=== PATIENT | female | born 1985 | race Native Hawaiian/Other Pacific Islander ===

== ENCOUNTER 2017-08-20 08:57 | Inpatient (IN) | payer OTHER ==
[2017-08-20 09:48] VITALS: RESP 18; O2SAT 100
--- NOTE | 2017-08-20 10:08 | ED PDOC ---
HPI: Psych/Substance Abuse Time Seen by Provider: 08/20/17 10:03 Chief Complaint (Nursing): Psychiatric Evaluation Chief Complaint (Provider): PSYCH EVAL History Per: Patient (31 Y/O FEMALE HERE WITH FOR ONGOING DEPRESSION 1.5 MONTHS. PATIENT HAS EXPRESSED SUICIDAL IDEATION AND HAS PLAN TO JUMP OFF BUILDING. STATES PATIENT HAS MALE FRIEND OF 15 YEARS WITH WHOM SHE SENT NUDE PICTURES IN ANGER AND BECAME WORRIED THAT HE WOULD SHOW OTHERS/POST THEM. SINCE THIS TIME, HAS BEEN PARANOID THAT HER FAMILY KNOWS AND FEELS HER IS UPSET WITH HER. HAS CUT SELF IN PAST SUICIDAL GESTURE BUT STATES IT WAS NOT SERIOUS ATTEMPT. ), Family Past Medical History Reviewed: Historical Data, Nursing Documentation, Vital Signs Vital Signs: Last Vital Signs Temp 97 F L 08/20/17 09:43 Pulse 77 08/20/17 09:43 Resp 18 08/20/17 09:43 BP 117/80 08/20/17 09:43 Pulse Ox 100 08/20/17 09:43 - Medical History PMH: Hyperthyroidism Denies: Chronic Kidney Disease - Family History Family History: States: No Known Family Hx - Immunization History Hx Tetanus Toxoid Vaccination: No Hx Influenza Vaccination: No Hx Pneumococcal Vaccination: No - Home Medications Home Medications: Ambulatory Orders Medication Instructions Recorded Levothyroxine [Synthroid] 50 mcg PO DAILY 08/20/17 - Allergies Allergies/Adverse Reactions: Allergies Allergy/AdvReac Type Severity Reaction Status Date / Time No Known Allergies Allergy Verified 08/20/17 09:43 Review of Systems ROS Statement: Except As Marked, All Systems Reviewed And Found Negative Physical Exam - Reviewed Nursing Documentation Reviewed: Yes Vital Signs Reviewed: Yes - Physical Exam Appears: Positive for: Well, Non-toxic, No Acute Distress Head Exam: Positive for: ATRAUMATIC, NORMAL INSPECTION, NORMOCEPHALIC Skin: Positive for: Normal Color, Warm, DRY Eye Exam: Positive for: EOMI, Normal appearance, PERRL ENT: Positive for: Normal ENT Inspection Neck: Positive for: Normal, Painless ROM Cardiovascular/Chest: Positive for: Regular Rate, Rhythm Respiratory: Positive for: CNT, Normal Breath Sounds Gastrointestinal/Abdominal: Positive for: Normal Exam, Bowel Sounds, Soft Back: Positive for: Normal Inspection Extremity: Positive for: Normal ROM Neurologic/Psych: Positive for: Alert, Oriented - Laboratory Results Result Diagrams: 08/20/17 10:43 08/20/17 10:43 - ECG O2 Sat by Pulse Oximetry: 100 - Progress ED Course And Treament: SEEN BY CRISIS ADMITTED TO DR. SLATER FOR DIAGNOSIS OF DEPRESSION Disposition - Clinical Impression Clinical Impression: Depression - Patient ED Disposition Is Patient to be Admitted: Yes - Disposition Disposition Time: 14:59 Condition: FAIR - Pt Status Changed To: Hospital Disposition Of: Inpatient - Admit Certification Admit to Inpatient:: After my assessment, the patient will require hospitalization for at least two midnights. This is because of the severity of symptoms shown, intensity of services needed, and/or the medical risk in this patient being treated as an outpatient.
[2017-08-20 10:57] LABS: BASO % 0.5 % (0.0-2.0); EOS # 0.2 K/uL (0.0-0.7); EOS % 2.7 % (0.0-4.0); HEMOGLOBIN 12.9 g/dL (12.0-16.0); LYMPH # 1.9 K/uL (1.0-4.3); LYMPH % 31.7 % (20.0-40.0); MEAN CORPUSCULAR HEMOGLOBIN 29.1 pg (27.0-31.0); MEAN CORPUSCULAR HGB CONC 33.9 g/dL (33.0-37.0); MEAN PLATELET VOLUME 7.6 fl (7.2-11.7); MONO # 0.5 K/uL (0.0-0.8); MONO % 8.6 % (0.0-10.0); NEUT # 3.4 K/uL (1.8-7.0); NEUT % 56.5 % (50.0-75.0); NRBC % 0.2 % (0.0-0.0); RBC 4.41 Mil/uL (3.80-5.20); RED CELL DISTRIBUTION WIDTH 15.9 % (11.5-14.5)
[2017-08-20 11:24] LABS: ALB/GLOB RATIO 1.2 (1.0-2.1); ALT/SGPT 46 U/L (9-52); AST/SGOT 33 U/L (14-36); BLOOD UREA NITROGEN 9 mg/dl (7-17); CALCIUM 9.3 mg/dL (8.4-10.2); GFR AFRICAN-AMERICAN > 60; GFR NON-AFRICAN AMERICAN > 60
[2017-08-20 11:39] LABS: SQUAMOUS EPITHIAL 10 /hpf (0-5); URINE BACTERIA RARE (<OCC); URINE BILIRUBIN NEGATIVE (NEGATIVE); URINE BLOOD NEGATIVE (NEGATIVE); URINE CLARITY CLOUDY (Clear); URINE COLOR YELLOW (YELLOW); URINE GLUCOSE (UA) NEG (Normal); URINE LEUKOCYTE ESTERASE NEG Leu/uL (Negative); URINE NITRATE NEGATIVE (NEGATIVE); URINE PROTEIN NEGATIVE (NEGATIVE); URINE UROBILINOGEN 0.2-1.0 mg/dL (0.2-1.0)
[2017-08-20 11:46] LABS: BARBITURATES, UR NEGATIVE (NEGATIVE); BENZODIAZEPINES, UR NEGATIVE (NEGATIVE); OPIATES, UR NEGATIVE (NEGATIVE); PHENCYCLIDINE, UR NEGATIVE (NEGATIVE)
[2017-08-20] MEDS ORDERED: Alum-Mag Hydrox-Simethicone Susp (30 mL) PO PRN (19:58)
[2017-08-20] MEDS ORDERED: DiphenhydrAMINE 50 mg/ml Inj IM PRN (19:58)
[2017-08-20] MEDS ORDERED: Magnesium Hydroxide Susp 30 ml UD PO PRN (19:58)
--- NOTE | 2017-08-20 20:25 | PCM.BM ---
<Lopez Head - Last Filed: 08/20/17 20:24> Treatment Plan Problems - Problems identified on initial assessmt Hopelessness/Helplessness Date Initiated: 08/20/17 Time Initiated: 20:24 Assessment reference: NA Status: Active Priority: 1 Feelings of Worthlessness Date Initiated: 08/20/17 Time Initiated: 20:24 Assessment reference: NA Status: Active Priority: 2 Treatment assets and liabiliti Patient Assests: cooperative, ADL independent, negotiates basic needs, cognitively intact Patient Liabilities: relationship conflicts, language/speech - Milieu Protocol Maintain good personal hygiene: every shift Encourage regular showers, every shift Remind patient to perform daily oral care, every shift Assist patient to perform ADL's Maintain personal safety: daily Educate patient to report safety concerns to staff, daily Monitor environment for contraband/sharps Medication safety: Monitor for expected outcome, potential side effects: daily, Assess barriers to learning: daily, Assess readiness for medication education: daily <Amanda Rivera - Last Filed: 08/21/17 10:58> - Diagnosis (1) Major depressive disorder Status: Acute Interventions: Medication management, Psychoeducation, Individual and group therapy 08/21/17 10:58 <Karina Rosales - Last Filed: 08/21/17 13:00> Family Contact Family contact: Patient agrees to contact, Family has been contacted by patient , Telephone contact initiated by staff, Family meeting planned to review treatment plan Family contact name: Richard - Family contacted how many times per week?: 2 Family contact comment: [phone] Discharge/Continuing Care - Education Needs Education Needs: Family Medication, Family Diagnosis/Disease Process, Family Coping Skills, Family Community resources, Family Nutrition, Family Personal Hygiene/Grooming, Family Aftercare Safety Plan, Patient Medication, Patient Diagnosis/Disease Process, Patient Coping Skills, Patient Community resources, Patient Nutrition, Patient Personal Hygiene/Grooming, Patient Aftercare Safety Plan - Discharge Discharge Criteria: Tolerates medication w/o severe side effects, Free of Suicidal thoughts, Normal sleep pattern, Ability to care for self, Reduction of target symptoms Discharge to:: Home, With Family - Additional Comments 08/21/17 13:00 Interdisciplinary team met with pt in the activity room; translation services provided by a certified employee, Anne Werner RN. Reason for admission reviewed and discussed. Pt reported she was referred to the Ed because hard time sleeping and irritable. Pt reported symptoms started about 15 days ago. Pt reported feeling increasingly anxious and fearful after texting an old college friend who then asked her for a nude picture of her. Pt reported that initially she declined and that friend stopped texting her. Pt reported thats he later sent him the nude picture and he requested for a video. Pt reported feeling increasingly anxious and fearful because she fears that the friend is going to post the picture on social media. Pt reported that she has been avoiding talking on the cellphone and even watching TV because she fears that she is going to see her picture on the internet. Pt reported that she disclosed this to her and now she fears that he will leave her. Pt also reported that she relocated to the [place] on [place]27[place]2017 due to her job and has no friends and no family near her. Pt reported that language barrier is difficult for her and she feels sad. Pt reported that she has had thoughts of suicide in the past, but never attempted nor carried out her plan. Pts social and medical issues discussed and reviewed. Pts medications reviewed and discussed. Tx plan reviewed and discussed; pt is agreeable. Team also met with pts , Richard and collateral information obtained. Per , he referred pt to the ED because she was not sleeping for 15 days and is increasingly anxious and fearful. Pts reported he is aware of pt sending her male college friend a nude picture and fears that he is going to leave her for that. Pts explained that he does not plan nor has thought about leaving pt. Pts reported that pt has been anxious bc she fears that her picture will be on the internet and family in [place] will see it. Medications reviewed and discussed with . Pt and pts requesting that pt be discharged and return back home. Pts reported that he is not concerned with pts safety and is comfortable with pt returning home. reported that he has finished a work project and will have more time to dedicate to pt. Pt and pts agreeable with pt following up with an outpatient psychiatrist post discharge. Contracts Paralegal explained to pts that once his insurance is verified that a list of in-network providers will be obtained and appointment will be secured. Contracts Paralegal inquired about consent to contact doctor post discharge and then contacting pt and pts with appointment via telephone and mail. Pt verbalized understanding and agreement, per employment specialist. Pts who is Iranian speaking can be reached at ). - Treatment Team Participation Discussed with Family/SO: Yes Was Patient/Family/SO present at Treatment Team Meeting: Yes
[2017-08-21 06:04] VITALS: BP 93/67; PULSE 77; TEMP 97.8
--- NOTE | 2017-08-21 07:05 | CP.PCM.CON ---
History of Present Illness - History of Present Illness History of Present Illness: Attending: Dr Golden Reason for consult: Management of Hypothyroidism and medical management Chief complaint: Depression HPI: The hx is obtained from the patient and the medical record. This is a 31 years old female who speaks little Montenegrin ans has hx of Hypothyroidism. She was brought to he ED by her because of a Month and Half Hx of Depression and Suicidal Ideation. She has been expressing Anxiety, anger and Paranoid thoughts of nude photos of herself being shown to family and friends. She has gone to the roof of her apartment twice with idea of jumping. No headaches, fever, cough, nausea nor vomits. No urinary symptoms nor diarrhea. PMH: Hypothyroidism PSH: Denies SH: No illegal drug use; Never Smoked; Alcohlo socially; Live with family FH: States: no known family hx Allergies: NKDA Medication: reviewed Review of Systems - Constitutional Constitutional: absent: Chills, Fatigue, Fever, Headache - EENT Eyes: absent: Diplopia, Floaters, Photophobia, Requires Corrective Lenses, Sees Flashes Ears: absent: Decreased Hearing, Ear Discharge, Ear Pain, Tinnitus Nose/Mouth/Throat: absent: Epistaxis, Nasal Congestion, Sinus Pain, Sinus Pressure - Cardiovascular Cardiovascular: absent: Chest Pain, Chest Pain at Rest, Dyspnea, Edema - Respiratory Respiratory: absent: Cough, Dyspnea, Wheezing, Stridor - Gastrointestinal Gastrointestinal: absent: Abdominal Pain, Constipation, Diarrhea, Nausea, Vomiting - Genitourinary Genitourinary: absent: Dysuria, Flank Pain, Hematuria, Urinary Frequency - Musculoskeletal Musculoskeletal: absent: Arthralgias, Deformity, Joint Swelling, Myalgias - Integumentary Integumentary: absent: Pruritus, Rash, Skin Ulcer, Sores, Striae, Swelling - Neurological Neurological: absent: Confusion, Dizziness, Focal Weakness, Weakness - Psychiatric Psychiatric: Anxiety, Depression, Paranoia - Endocrine Endocrine: absent: Palpitations, Polydipsia, Polyphagia, Polyuria - Hematologic/Lymphatic Hematologic: absent: Easy Bleeding, Easy Bruising Past Patient History - Past Medical History & Family History Past Medical History?: Yes - Past Social History Smoking Status: Never Smoked Chewing Tobacco Use: No Cigar Use: No Alcohol: Occasional Drugs: Denies Home Situation {Lives}: With Family - CARDIAC Hx Cardiac Disorders: No Hx Hypertension: No - PULMONARY Hx Respiratory Disorders: No Hx Tuberculosis: No - NEUROLOGICAL HX Cerebrovascular Accident: No Hx Seizures: No - HEENT Hx HEENT Problems: No - RENAL Hx Chronic Kidney Disease: No - ENDOCRINE/METABOLIC Hx Hypothyroidism: Yes - HEMATOLOGICAL/ONCOLOGICAL Hx Cancer: No Hx Human Immunodeficiency Virus (HIV): No - INTEGUMENTARY Hx Dermatological Problems: No - MUSCULOSKELETAL/RHEUMATOLOGICAL Hx Musculoskeletal Disorders: No - GASTROINTESTINAL Hx Gastrointestinal Disorders: No - GENITOURINARY/GYNECOLOGICAL Hx Genitourinary Disorders: No Hx Sexually Transmitted Disorders: No - PSYCHIATRIC Hx Anxiety: Yes Hx Depression: Yes Hx Substance Use: No - SURGICAL HISTORY Hx Surgeries: No - ANESTHESIA Hx Anesthesia: No Meds Allergies/Adverse Reactions: Allergies Allergy/AdvReac Type Severity Reaction Status Date / Time No Known Allergies Allergy Verified 08/20/17 09:43 - Medications Medications: Current Medications Acetaminophen (Tylenol 325mg Tab) 650 mg PO Q4 PRN PRN Reason: Pain, moderate (4-7) Al Hydrox/Mg Hydrox/Simethicone (Maalox Plus 30 Ml) 30 ml PO Q4 PRN PRN Reason: Dyspepsia Diphenhydramine HCl (Benadryl) 50 mg IM Q6 PRN PRN Reason: Extrapyramidal S/S Unable PO Diphenhydramine HCl (Benadryl) 50 mg PO Q6 PRN PRN Reason: Extrapyramidal Symptoms Diphenhydramine HCl (Benadryl) 50 mg PO HS PRN PRN Reason: Sleep Last Admin: 08/20/17 23:15 Dose: 50 mg Haloperidol (Haldol) 5 mg PO Q4 PRN PRN Reason: Agitation Haloperidol Lactate (Haldol) 5 mg IM Q4 PRN PRN Reason: Agitation, Unable to Take PO Levothyroxine Sodium (Synthroid) 50 mcg PO DAILY KIESHA Lorazepam (Ativan) 2 mg IM Q4 PRN PRN Reason: Anxiety/Agitation,Unable PO Lorazepam (Ativan) 2 mg PO Q4 PRN PRN Reason: Anxiety/Agitation Last Admin: 08/21/17 02:30 Dose: 2 mg Magnesium Hydroxide (Milk Of Magnesia) 30 ml PO HS PRN PRN Reason: Constipation Physical Exam - Constitutional Appears: No Acute Distress - Head Exam Head Exam: ATRAUMATIC, NORMAL INSPECTION, NORMOCEPHALIC - Eye Exam Eye Exam: EOMI, Normal appearance Pupil Exam: NORMAL ACCOMODATION, PERRL - ENT Exam ENT Exam: Mucous Membranes Moist, Normal Exam, Normal External Ear Exam - Neck Exam Neck exam: Positive for: Full Rom, Normal Inspection. Negative for: Lymphadenopathy, Tenderness - Respiratory Exam Respiratory Exam: Clear to Auscultation Bilateral. absent: Rales, Rhonchi, Wheezes, Stridor - Cardiovascular Exam Cardiovascular Exam: REGULAR RHYTHM, RRR, +S1, +S2. absent: Gallop, JVD - GI/Abdominal Exam GI & Abdominal Exam: Normal Bowel Sounds, Soft. absent: Mass, Organomegaly, Tenderness - Rectal Exam Rectal Exam: Deferred - Extremities Exam Extremities exam: Positive for: normal inspection. Negative for: calf tenderness, joint swelling, pedal edema - Back Exam Back exam: NORMAL INSPECTION. absent: CVA tenderness (L), CVA tenderness (R) - Neurological Exam Neurological exam: Alert, CN II-XII Intact, Oriented x3, Reflexes Normal - Psychiatric Exam Psychiatric exam: Normal Affect, Normal Mood - Skin Skin Exam: Dry, Intact, Normal Color, Warm Results - Vital Signs Recent Vital Signs: Last Vital Signs Temp 97.8 F 08/21/17 06:00 Pulse 77 08/21/17 06:00 Resp 18 08/21/17 06:00 BP 93/67 L 08/21/17 06:00 Pulse Ox 100 08/20/17 16:07 - Labs Result Diagrams: 08/20/17 10:43 08/20/17 10:43 Labs: Laboratory Results - last 24 hr 08/20/17 08/20/17 08/20/17 10:43 10:43 11:05 WBC 6.0 RBC 4.41 Hgb 12.9 Hct 37.9 MCV 86.0 MCH 29.1 MCHC 33.9 RDW 15.9 H Plt Count 245 MPV 7.6 Neut % (Auto) 56.5 Lymph % (Auto) 31.7 Hill % (Auto) 8.6 Eos % (Auto) 2.7 Baso % (Auto) 0.5 Neut # (Auto) 3.4 Lymph # (Auto) 1.9 Hill # (Auto) 0.5 Eos # (Auto) 0.2 Baso # (Auto) 0.0 Sodium 142 Potassium 4.7 Chloride 104 Carbon Dioxide 29 Anion Gap 14 BUN 9 Creatinine 0.8 Est GFR ( Amer) > 60 Est GFR (Non-Af Amer) > 60 Random Glucose 98 Calcium 9.3 Total Bilirubin 0.5 AST 33 ALT 46 Alkaline Phosphatase 59 Total Protein 7.5 Albumin 4.0 Globulin 3.5 Albumin/Globulin Ratio 1.2 TSH 3rd Generation 1.77 Urine Color Urine Clarity Urine pH Ur Specific [place] Urine Protein Urine Glucose (UA) Urine Ketones Urine Blood Urine Nitrate Urine Bilirubin Urine Urobilinogen Ur Leukocyte Esterase Urine RBC (Auto) Urine Microscopic WBC Ur Squamous Epith Cells Urine Bacteria Urine Opiates Screen Negative Urine Methadone Screen Negative Ur Barbiturates Screen Negative Ur Phencyclidine Scrn Negative Ur Amphetamines Screen Negative U Benzodiazepines Scrn Negative U Oth Cocaine Metabols Negative U Cannabinoids Screen Negative Alcohol, Quantitative < 10 08/20/17 11:05 WBC RBC Hgb Hct MCV MCH MCHC RDW Plt Count MPV Neut % (Auto) Lymph % (Auto) Hill % (Auto) Eos % (Auto) Baso % (Auto) Neut # (Auto) Lymph # (Auto) Hill # (Auto) Eos # (Auto) Baso # (Auto) Sodium Potassium Chloride Carbon Dioxide Anion Gap BUN Creatinine Est GFR ( Amer) Est GFR (Non-Af Amer) Random Glucose Calcium Total Bilirubin AST ALT Alkaline Phosphatase Total Protein Albumin Globulin Albumin/Globulin Ratio TSH 3rd Generation Urine Color Yellow Urine Clarity Cloudy Urine pH 6.0 Ur Specific [place] 1.009 Urine Protein Negative Urine Glucose (UA) Neg Urine Ketones Negative Urine Blood Negative Urine Nitrate Negative Urine Bilirubin Negative Urine Urobilinogen 0.2-1.0 Ur Leukocyte Esterase Neg Urine RBC (Auto) 7 H Urine Microscopic WBC 2 Ur Squamous Epith Cells 10 H Urine Bacteria Rare Urine Opiates Screen Urine Methadone Screen Ur Barbiturates Screen Ur Phencyclidine Scrn Ur Amphetamines Screen U Benzodiazepines Scrn U Oth Cocaine Metabols U Cannabinoids Screen Alcohol, Quantitative Assessment & Plan - Assessment and Plan (Free Text) Assessment: #. Depressive/Anxiety Disorder #. Hypothyroidism Plan: 31 years old female who speaks little Montenegrin and has hx of Hypothyroidism, brought to he ED by her because of a Month and Half Hx of Depression and Suicidal Ideation. #. Depressive/Anxiety Disorder with Suicide Ideation - Psychiatric management #. Hypothyroidism - Synthroid - TSH - Free T4 #. DVT Prophylaxis: Ambulatory #. Code Status: Full - Date & Time Date: 08/21/17 Time: 07:05
[2017-08-21 07:58] LABS: T4 8.88 ug/dl (5.5-11.0)
[2017-08-21 08:21] LABS: HDL CHOLESTEROL 38 MG/DL (30-70)
[2017-08-21 08:32] LABS: LDL CHOLESTEROL 105 mg/dL (0-129)
[2017-08-21] MEDS ORDERED: Levothyroxine 50 MCG TAB PO SCH (09:00)
--- NOTE | 2017-08-21 09:59 | PCM.PSYCH ---
Initial Psychiatric Evaluation - Initial Psychiatric Evaluation Type of Admission: Voluntary Legal Status: Capacity Chief Complaint (in patient's own words): "I've been lonely and depressed." Patient's Reaction to Hospitalization: HPI: 31 yo female w/ no significant past psychiatric history, presents w/ depressed mood and anxiety in the context of recently moving from [place] and lack of family and friends in the country. Patient reports that she has has vague suicidal ideation w/o plan or intent in the past, but denies current active suicidal ideation/plan/intent. She does report feeling lonely and depressed, but she feels hopeful for the future and would like to leave the hospital to care for her child. She denies AH/VH/paranoia. She reports feeling anxious that a male friend of hers will spread nude photos of her that she sent him. Patient reports difficult sleeping at night. Patient denies domestic violence. As per patient's , he has noticed that she has been depressed due to feeling lonely and isolated in the [place]. He does not believe she is an acute danger to herself or others. He will be home with her and he wants her to return home today. PMHx: Hypothyoidism ALL: NKDA FHx: Sister from a brain tumor; father w/ h/o depression following of the patient's sister SHx: From [place], unemployed, 1 child, lives w/ ; no drugs/etoh/cig Current Medications: Active Medications Generic Name Dose Route Start Last Admin Trade Name Freq PRN Reason Stop Dose Admin Acetaminophen 650 mg 08/20/17 19:58 Tylenol 325mg Tab PO Q4 PRN Pain, moderate (4-7) Al Hydrox/Mg Hydrox/Simethicone 30 ml 08/20/17 19:58 Maalox Plus 30 Ml PO Q4 PRN Dyspepsia Diphenhydramine HCl 50 mg 08/20/17 19:58 Benadryl IM Q6 PRN Extrapyramidal S/S Unable PO Diphenhydramine HCl 50 mg 08/20/17 19:58 Benadryl PO Q6 PRN Extrapyramidal Symptoms Diphenhydramine HCl 50 mg 08/20/17 20:05 08/20/17 23:15 Benadryl PO 50 mg HS PRN Administration Sleep Haloperidol 5 mg 08/20/17 19:58 Haldol PO Q4 PRN Agitation Haloperidol Lactate 5 mg 08/20/17 19:58 Haldol IM Q4 PRN Agitation, Unable to Take PO Levothyroxine Sodium 50 mcg 08/21/17 09:00 08/21/17 08:41 Synthroid PO 50 mcg DAILY KIESHA Administration Lorazepam 2 mg 08/20/17 19:58 Ativan IM Q4 PRN Anxiety/Agitation,Unable PO Lorazepam 2 mg 08/20/17 19:58 08/21/17 02:30 Ativan PO 2 mg Q4 PRN Administration Anxiety/Agitation Magnesium Hydroxide 30 ml 08/20/17 19:58 Milk Of Magnesia PO HS PRN Constipation Past Psychiatric History - Past Psychiatric History Previous Treatment History: None Pertinent Medical Hx (Current Medical&Sleep Prob, Allergies): Allergies Allergy/AdvReac Type Severity Reaction Status Date / Time No Known Allergies Allergy Verified 08/20/17 09:43 Levothyroxine [Synthroid] 50 mcg PO DAILY 08/20/17 Review of Systems - Psychiatric Psychiatric: Abnormal Sleep Pattern, Anxiety, Depression, Difficulty Concentrating, Suicidal Ideation Mental Status Examination - Personal Presentation Personal Presentation: Looks stated age - Affect Affect: Broad - Motor Activity Motor Activity: Calm - Reliability in Providing Information Reliability in Providing Information: Good - Speech Speech: Organized - Mood Mood: Depressed, Anxious - Formal Thought Process Formal Thought Process: No Impairment - Hallucinations/Delusions Additional comments: NO AH/VH/paranoia/delusions - Obsessions/Compulsions Obsessions: No Compulsions: No - Cognitive Functions Orientation: Person, Place, Situation, Time Sensorium: Alert Attention/Concentration: Attentive Estimate of Intelligence: Average Judgement: Intact, as evidence by: Good judgement Memory: Recent intact, as evidence by: Ability to recall events of the day, Recent intact, as evidence by: 3/3 object recall, Remote intact, as evidenced by : Abilit to recall sig. life events, Remote intact, as evidenced by: Ability to recall historical events - Risk Risk: Suicidal - Strength & Assets Inventory Strength & Assets Inventory: Intelligence, Family support, Education, Skills, Life experience, Cooperative DSM 5 DX - DSM 5 DSM 5 Diagnosis: Major Depressive Disorder - Recommended/Plan of Treatment Treatment Recommendations and Plan of Treatment: Major Depressive Disorder; patient is requesting to be discharged. She is not an acute danger to self or others, confirmed by patient's , so she will be discharged to home today. -Start Zoloft 50 mg PO Daily -Individual and group therapy -Discharge patient w/ outpatient followup Projected ELOS: 1 Discharge Plan and Discharge Criteria: Patient is psychiatrically stable for discharge at this time - Smoking Cessation Smoking Cessation Initiated: No Reason for not providing: Not indicated
--- NOTE | 2017-08-21 12:11 | PCM.PYCHDC ---
Mental Status Examination - Mental Status Examination Orientation: Person, Place, Situation, Time Memory: Intact Mood: Depressed, Anxious Affect: Broad Speech: Appropriate Attention: WNL Concentration: WNL Association: WNL Fund of Knowledge: WNL Formal Thought Process: No Impairment Description of patient's judgement and insight: Good I/J Psychotic Thoughts and Behaviors: NO AH/VH/paranoia/delusions Suicidal Ideation: No Current Homicidal Ideation?: No Discharge Summary - Discharge Note Reason for Hospitalization: HPI: 31 yo female w/ no significant past psychiatric history, presents w/ depressed mood and anxiety in the context of recently moving from [place] and lack of family and friends [place] the country. Patient reports that she has has vague suicidal ideation w/o plan or intent in the past, but denies current active suicidal ideation/plan/intent. She does report feeling lonely and depressed, but she feels hopeful for the future and would like to leave the hospital to care for her child. She denies AH/VH/paranoia. She reports feeling anxious that a male friend of hers will spread nude photos of her that she sent him. Patient reports difficult sleeping at night. Patient denies domestic violence. As per patient's , he has noticed that she has been depressed due to feeling lonely and isolated in the [place]. He does not believe she is an acute danger to herself or others. He will be home with her and he wants her to return home today. PMHx: Hypothyoidism ALL: NKDA FHx: Sister from a brain tumor; father w/ h/o depression following of the patient's sister SHx: From [place], unemployed, 1 child, lives w/ ; no drugs/etoh/cig Laboratory Data: Abnormal Lab Results 08/21/17 08/21/17 06:55 07:00 Triglycerides 107 Cholesterol 167 LDL Cholesterol Direct 105 HDL Cholesterol 38 Thyroxine (T4) 8.88 TSH 3rd Generation 2.86 Consultations:: List each consultation separately and include: 1. Reason for request. 2. Findings. 3. Follow-up Consultations: Medicine consult Summary of Hospital Course include:: 1. Description of specific treatment plan utilized for patients during their course of treatmen. 2. Summarize the time- course for resolution of acute symptoms and/or regressed behaviors. 3. Describe issues identified and worked on during hospitalization. 4. Describe medication utilized. 5. Describe medical problems identified and treated. 6. Reassessment of suicide risk Summary of Hospital Course: Patient was admitted to the hospital. She was started on Zoloft and will be discharged as she is requesting to be discharged and she is not an acute danger to herself or others. - Diagnosis (1) Major depressive disorder Current Visit: Yes Status: Acute - Final Diagnosis (DSM 5) Condition upon Discharge: STABLE DSM 5: Major Depressive Disorder Disposition: HOME/ ROUTINE Follow-up Treatment Plan: Major Depressive Disorder; patient is requesting to be discharged. She is not an acute danger to self or others, confirmed by patient's , so she will be discharged to home today. -Start Zoloft 50 mg PO Daily -Individual and group therapy -Discharge patient w/ outpatient followup Prescriptions/Medication Reconciliation: Sertraline [Zoloft] 50 mg PO DAILY #30 tab - Smoking Cessation Smoking Cessation Medication prescribed: No Reason for not providing: Not indicated - Antipsychotic Medications Pt discharged on 2 or more routine antipsychotic medications: No
== END 2017-08-21 13:25 | disposition home or self-care (01) | DRG 881 ==
LOC: H.ER 08:57 → H.ERHOLD 14:59 → H.STEP 19:57
PROVIDERS: ADMIT Psychiatry & Neurology Psychiatry; ATTEND Psychiatry & Neurology Psychiatry
PROC: GZ51ZZZ Individual Psychotherapy, Behavioral (ICD-10-PCS; principal; 2017-08-20)
DX: F32.9 Major depressive disorder, single episode, unspecified (principal); R45.851 Suicidal ideations; E05.90 Thyrotoxicosis, unspecified without thyrotoxic crisis or storm; F41.9 Anxiety disorder, unspecified; E03.9 Hypothyroidism, unspecified